=== PATIENT | female | born 1975 | race Caucasian/White ===

== ENCOUNTER 2019-08-25 11:33 | Outpatient (CLI) | payer BC ==
--- NOTE | 2019-08-25 13:50 | RAD ---
RIGHT KNEE 4 VIEWS: DATE: 08/25/2019. COMPARISON: None. HISTORY: Pain. FINDINGS: Mild medial compartment narrowing. There is mild osteophyte formation involving the medial and later al femoral condyle. There is mild posterior patellar osteophyte formation with mild patellofemoral j oint space narrowing. No significant knee joint effusion. No displaced fracture or dislocation. IMPRESSION: Degenerative joint disease. No acute osseous abnormality. POS: OFF
--- NOTE | 2019-08-25 14:02 | RAD ---
THREE VIEWS RIGHT GREAT TOE: DATE: 08/25/2019. COMPARISON: None. HISTORY: Pain. FINDINGS: There is severe degenerative change involving the 1st metatarsophalangeal joint with joint space narr owing, subchondral sclerosis, and osteophyte formation. There is prominent osteophyte emanating from the dorsal aspect of the 1st metatarsal head. No acute fracture or dislocation. IMPRESSION: Severe degenerative change at the 1st metatarsophalangeal joint. POS: OFF
== END 2019-08-25 11:34 | disposition home or self-care (01) ==
LOC: SCSRAD 11:33
PROVIDERS: ATTEND Physician Assistant
DX: M25.561 Pain in right knee (principal); M79.675 Pain in left toe(s); M19.072 Primary osteoarthritis, left ankle and foot; M17.11 Unilateral primary osteoarthritis, right knee